=== PATIENT | male | born 1955 | race Caucasian/White ===

== ENCOUNTER 2023-07-04 14:54 | Inpatient (IN) | payer MEDICARE, OTHER ==
[~2023-07-04] VITALS: Ht 190.5 cm; Wt 85.3 kg
[2023-07-04 15:49] LABS: APPEARANCE,URINE CLEAR (CLEAR); BILIRUBIN,URINE NEGATIVE (NEGATIVE); BLOOD, URINE TRACE-INTA Ery/uL (NEGATIVE); COLOR,URINE YELLOW (YELLOW); KETONES,URINE NEGATIVE (NEGATIVE); LEUKOCYTE ESTERASE ,URINE NEGATIVE (NEGATIVE); NITRITE, URINE NEGATIVE (NEGATIVE); PH,URINE 5.5 (5.0-8.0); PROTEIN,URINE NEGATIVE (NEGATIVE); UGLUCOSE NEGATIVE (NEGATIVE); UROBILINOGEN,URINE 0.2 EU/dL (0.2)
[2023-07-04 15:50] LABS: BASOPHILS # (AUTO) 0.1 K/uL (0.0-0.2); EOSINOPHILS # (AUTO) 0.2 K/uL (0.0-0.7); EOSINOPHILS % (AUTO) 2.1 % (0.0-6.0); HEMATOCRIT 48 % (39-51); HEMOGLOBIN 15.9 g/dL (13.5-17.5); LYMPHOCYTES # (AUTO) 2.2 K/uL (0.8-4.8); LYMPHOCYTES % (AUTO) 24.8 % (20.0-44.0); MEAN CORPUSCULAR HEMOGLOBIN 31 PG (26.0-33.0); MEAN CORPUSCULAR HGB CONC 33 g/dl (31.0-36.0); MEAN CORPUSCULAR VOLUME 94 fL (80-96); MONOCYTES # (AUTO) 0.6 K/uL (0.1-1.30); MONOCYTES % (AUTO) 7.1 % (2.0-12.0); NEUTROPHILS # (AUTO) 5.8 K/uL (1.8-8.9); PLATELET COUNT (AUTO) 292 K/uL (150-450); RED BLOOD CELL COUNT(AUTO) 5.13 MIL/uL (4.5-6.0); RED CELL DISTRIBUTION WIDTH 13.5 % (11.5-15.0)
[2023-07-04 16:06] LABS: ADD URINE CULTURE NO; BACTERIA,URINE None seen /HPF (None Seen); WBC,URINE 0-2 /HPF (0-3)
[2023-07-04 16:07] LABS: AMPHETAMINE, URINE NEGATIVE (NEGATIVE); BARBITURATE, URINE NEGATIVE (NEGATIVE); BENZODIAZEPINE, URINE NEGATIVE (NEGATIVE); CANNABINOID, URINE NEGATIVE (NEGATIVE); COCCAINE, URINE NEGATIVE (NEGATIVE); OPIATE, URINE NEGATIVE (NEGATIVE); PHENCYCLIDINE SCREEN,URINE NEGATIVE (NEGATIVE)
[2023-07-04 16:15] LABS: CALCIUM, SERUM 9.3 mg/dL (8.5-10.1); CARBON DIOXIDE 24 mmol/L (21-32); CHLORIDE 105 mmol/L (98-107); CREATININE 1.1 mg/dL (0.6-1.3); GLUCOSE 109 mg/dL (74-106); POTASSIUM 4.1 mmol/L (3.5-5.1); SODIUM SERUM 139 mmol/L (136-145); UREA NITROGEN, BLOOD 11 mg/dL (7-18)
[2023-07-04 16:25] LABS: ALANINE AMINOTRANSFERASE 18 U/L (12-78); ALBUMIN 3.8 g/dL (3.4-5.0); ALCOHOL, BLOOD < 3 mg/dL (0-10); ALKALINE PHOSPHATASE 110 U/L (46-116); ASPARTATE AMINOTRANSFERASE 11 U/L (15-37); BILIRUBIN,DIRECT 0.2 mg/dL (0.0-0.2); BILIRUBIN,TOTAL 0.6 mg/dL (0.2-1.0); SALICYLATE 6.6 mg/dL (2.8-20.0); TOTAL PROTEIN, SERUM 7.8 g/dL (6.4-8.2)
[2023-07-04 16:26] LABS: ACETAMINOPHEN 0 ug/ml (10-30)
[2023-07-04 20:00] VITALS: BP_SYST 134; BP_SYST 137; BP_DIAS 77; TEMP 97.6; O2SAT 97
[2023-07-04] MEDS ORDERED: MAG HYDROX/AL HYDROX/SIMETH 30 ML UDC PO PRN (21:00)
[2023-07-04] MEDS ORDERED: MAGNESIUM HYDROXIDE 30 ML UDC PO PRN (21:00)
[2023-07-04] MEDS ORDERED: ACETAMINOPHEN 325 MG TABLET PO PRN (21:00)
[2023-07-04] MEDS ORDERED: clonazePAM 0.5 MG TABLET PO PRN (21:00)
[2023-07-04] MEDS ORDERED: BLOOD SUGAR DIAGNOSTIC 1 EACH STRIP IN ONE (21:30)
[2023-07-04] MEDS: TEMAZEPAM 7.5 MG CAPSULE PO PRN (23:33)
[2023-07-05 08:00] VITALS: BP 115/78; TEMP 97.9; O2SAT 99
[2023-07-05] MEDS: NICOTINE PATCH (21MG) 21 MG PATCH.TD24 TD SCH ×3 (08:27→13:55)
[2023-07-05] MEDS: ESCITALOPRAM OXALATE (10 MG) 10 MG TABLET PO SCH (13:50)
[2023-07-05 16:00] VITALS: BP 124/78; TEMP 97.8; O2SAT 98
[2023-07-05 20:00] VITALS: BP 113/71; TEMP 97.9; O2SAT 98
[2023-07-05] MEDS: ARIPIPRAZOLE 5 MG TABLET PO SCH (21:10)
[2023-07-05] MEDS: TEMAZEPAM 7.5 MG CAPSULE PO PRN (22:12)
[2023-07-06 08:00] VITALS: BP 123/76; TEMP 97.6; O2SAT 100
[2023-07-06 08:03] LABS: BASOPHILS # (AUTO) 0.1 K/uL (0.0-0.2); BASOPHILS % (AUTO) 1.1 % (0.0-2.0); EOSINOPHILS # (AUTO) 0.3 K/uL (0.0-0.7); EOSINOPHILS % (AUTO) 4.6 % (0.0-6.0); HEMATOCRIT 41 % (39-51); HEMOGLOBIN 13.4 g/dL (13.5-17.5); LYMPHOCYTES # (AUTO) 2.6 K/uL (0.8-4.8); LYMPHOCYTES % (AUTO) 35.1 % (20.0-44.0); MEAN CORPUSCULAR HEMOGLOBIN 31 PG (26.0-33.0); MEAN CORPUSCULAR HGB CONC 33 g/dl (31.0-36.0); MEAN CORPUSCULAR VOLUME 94 fL (80-96); MONOCYTES # (AUTO) 0.7 K/uL (0.1-1.30); NEUTROPHILS # (AUTO) 3.8 K/uL (1.8-8.9); NEUTROPHILS % (AUTO) 50.2 % (43.0-81.0); PLATELET COUNT (AUTO) 248 K/uL (150-450); RED BLOOD CELL COUNT(AUTO) 4.36 MIL/uL (4.5-6.0); RED CELL DISTRIBUTION WIDTH 13.3 % (11.5-15.0); WHITE BLOOD COUNT (AUTO) 7.5 K/uL (4.3-11.0)
[2023-07-06 08:20] LABS: CALCIUM, SERUM 8.6 mg/dL (8.5-10.1); POTASSIUM 3.6 mmol/L (3.5-5.1)
[2023-07-06] MEDS: ESCITALOPRAM OXALATE (10 MG) 10 MG TABLET PO SCH (08:51)
[2023-07-06] MEDS: NICOTINE PATCH (21MG) 21 MG PATCH.TD24 TD SCH (08:51)
[2023-07-06 16:00] VITALS: BP 125/69; TEMP 98; O2SAT 100
[2023-07-06 20:00] VITALS: BP 130/71; TEMP 97.5; O2SAT 98
[2023-07-06] MEDS: ATORVASTATIN 10 MG TABLET PO SCH (21:02)
[2023-07-06] MEDS: ARIPIPRAZOLE 5 MG TABLET PO SCH (21:04)
[2023-07-06] MEDS: TEMAZEPAM 7.5 MG CAPSULE PO PRN (21:35)
[2023-07-07 08:00] VITALS: BP 115/72; TEMP 97.5; O2SAT 95
[2023-07-07] MEDS: ESCITALOPRAM OXALATE (10 MG) 10 MG TABLET PO SCH (08:28)
[2023-07-07] MEDS: NICOTINE PATCH (21MG) 21 MG PATCH.TD24 TD SCH (08:28)
[2023-07-07 16:00] VITALS: BP 121/74; TEMP 97.9; O2SAT 98
[2023-07-07 20:35] VITALS: BP 123/73; TEMP 97.9; O2SAT 99
[2023-07-07] MEDS: ARIPIPRAZOLE 5 MG TABLET PO SCH (21:34)
[2023-07-07] MEDS: ATORVASTATIN 10 MG TABLET PO SCH (21:34)
[2023-07-07] MEDS: TEMAZEPAM 7.5 MG CAPSULE PO PRN (21:59)
[2023-07-08 08:00] VITALS: BP 130/75; TEMP 98.1; O2SAT 96
[2023-07-08] MEDS: NICOTINE PATCH (21MG) 21 MG PATCH.TD24 TD SCH (08:31)
[2023-07-08] MEDS: ESCITALOPRAM OXALATE (10 MG) 10 MG TABLET PO SCH (08:31)
[2023-07-08 16:00] VITALS: BP 123/68; TEMP 97.8; O2SAT 98
[2023-07-08 20:19] VITALS: BP 120/71; TEMP 98.2; O2SAT 96
[2023-07-08] MEDS: TEMAZEPAM 7.5 MG CAPSULE PO PRN (21:02)
[2023-07-08] MEDS: ATORVASTATIN 10 MG TABLET PO SCH (21:03)
[2023-07-08] MEDS: ARIPIPRAZOLE 5 MG TABLET PO SCH (21:03)
[2023-07-09 08:00] VITALS: BP 116/71; TEMP 97.1; O2SAT 96
[2023-07-09] MEDS: NICOTINE PATCH (21MG) 21 MG PATCH.TD24 TD SCH (08:38)
[2023-07-09] MEDS: ESCITALOPRAM OXALATE (10 MG) 10 MG TABLET PO SCH (08:38)
[2023-07-09 16:00] VITALS: BP 108/65; TEMP 98.2; O2SAT 99
[2023-07-09 20:19] VITALS: BP 116/68; TEMP 98.3; O2SAT 96
[2023-07-09] MEDS: ATORVASTATIN 10 MG TABLET PO SCH (21:36)
[2023-07-09] MEDS: ARIPIPRAZOLE 5 MG TABLET PO SCH (21:36)
[2023-07-09] MEDS: TEMAZEPAM 7.5 MG CAPSULE PO PRN (21:41)
[2023-07-10 08:00] VITALS: BP 120/83; TEMP 98.6; O2SAT 96
[2023-07-10] MEDS: ESCITALOPRAM OXALATE (10 MG) 10 MG TABLET PO SCH (09:16)
[2023-07-10] MEDS: NICOTINE PATCH (21MG) 21 MG PATCH.TD24 TD SCH (09:16)
[2023-07-10 16:00] VITALS: BP 105/71; TEMP 98.2; O2SAT 98
[2023-07-10 20:06] VITALS: BP 127/66; TEMP 98.4; O2SAT 99
[2023-07-10] MEDS: ATORVASTATIN 10 MG TABLET PO SCH (21:16)
[2023-07-10] MEDS: ARIPIPRAZOLE 5 MG TABLET PO SCH (21:17)
[2023-07-10] MEDS: TEMAZEPAM 7.5 MG CAPSULE PO PRN (21:22)
[2023-07-11 08:00] VITALS: BP 113/65; TEMP 97.8; O2SAT 96
[2023-07-11] MEDS: NICOTINE PATCH (21MG) 21 MG PATCH.TD24 TD SCH (08:11)
[2023-07-11] MEDS: ESCITALOPRAM OXALATE (10 MG) 10 MG TABLET PO SCH (08:11)
[2023-07-11 16:00] VITALS: BP 121/86; TEMP 97.9; O2SAT 100
[2023-07-11 20:00] VITALS: BP 123/80; TEMP 98.6; O2SAT 98
[2023-07-11] MEDS: ARIPIPRAZOLE 5 MG TABLET PO SCH (21:21)
[2023-07-11] MEDS: ATORVASTATIN 10 MG TABLET PO SCH (21:21)
[2023-07-11] MEDS: TEMAZEPAM 7.5 MG CAPSULE PO PRN (21:21)
[2023-07-12 08:00] VITALS: BP 141/72; TEMP 97.8; O2SAT 96
[2023-07-12] MEDS: ESCITALOPRAM OXALATE (10 MG) 10 MG TABLET PO SCH (09:32)
[2023-07-12] MEDS: NICOTINE PATCH (21MG) 21 MG PATCH.TD24 TD SCH (09:32)
== END 2023-07-12 11:20 | disposition home or self-care (01) | DRG 885 ==
LOC: ER 14:56 → EDSEX 14:56 → GPS 19:44
PROVIDERS: ADMIT Psychiatry & Neurology Psychiatry; ATTEND Nurse Practitioner Family
DX: F33.3 Major depressive disorder, recurrent, severe with psychotic symptoms (principal); I10 Essential (primary) hypertension; F41.9 Anxiety disorder, unspecified; E78.00 Pure hypercholesterolemia, unspecified; F17.210 Nicotine dependence, cigarettes, uncomplicated; Z86.73 Personal history of transient ischemic attack (TIA), and cerebral infarction without residual deficits; Z91.148 Patient's other noncompliance with medication regimen for other reason; R73.9 Hyperglycemia, unspecified
CPT/HCPCS: 36415; 80048-TC; 80061-TC; 80076-TC; 81001; 82962-TC; 85025-TC; C9803; G0480